=== PATIENT | male | born 1975 | race Caucasian/White ===

== ENCOUNTER 2022-07-27 07:40 | Emergency (ER) | payer OTHER, SELFPAY ==
--- NOTE | ~2022-07-27 | CT_ITS ---
EXAMINATION: CT abdomen pelvis wo con DATE: 07/27/2022 09:05 INDICATION: Right flank pain TECHNIQUE: Computed tomography (CT) of the abdomen and pelvis was performed without intravenous contr ast. The dose-length product (DLP) was 1406.73 mGy-cm. Automated exposure control and iterative recon struction technique were employed. COMPARISON: None FINDINGS: Minimal dependent atelectasis is present in the lung bases. The heart size is normal. The l iver, spleen, pancreas, gallbladder, and adrenal glands are normal. There is a 2 mm stone at the righ t ureterovesicular junction which causes mild hydroureteronephrosis. There are approximately 10 nonob structing stones of the right kidney which measure up to 4 mm. There are three nonobstructing stones of the left kidney which measure up to 3 mm. No pathologically enlarged abdominal or pelvic lymph nod es are identified. No free intraperitoneal gas or evidence of bowel obstruction. There is mild lumbar spondylosis. There is an umbilical hernia containing fat. IMPRESSION: 1. 2 mm stone at the right ureterovesicular junction causing mild hydroureteronephrosis. 2. Nonobstructing bilateral nephrolithiasis. Reviewed, dictated and finalized at location A. IMPRESSION: 1. 2 mm stone at the right ureterovesicular junction causing mild hydroureteron ephrosis. 2. Nonobstructing bilateral nephrolithiasis.
[2022-07-27 07:45] VITALS: BP 135/75; PULSE 66; RESP 16; TEMP 36.7; O2SAT 98
[2022-07-27 08:09] LABS: Basophils Absolute Auto 0.1 K/mm3 (0.0-0.1); Basophils Percent Auto 0.7 % (0.2-1.2); Eosinophils Absolute Auto 0.3 K/mm3 (0-0.3); Eosinophils Percent Auto 4.5 % (0-4.4); Hematocrit 46.2 % (42.0-52.0); Hemoglobin 15.3 g/dL (14.0-18.0); Immature Granulocyte Absolute 0.02 K/mm3 (0.00-0.031); Immature Granulocyte Percent A 0.3 % (0-0.5); Lymphocytes Absolute Auto 2.97 K/mm3 (0.9-3.2); Lymphocytes Percent Auto 40.6 % (18.3-44.2); Mean Corpuscular HGB Conc 33.1 g/dl (32-36); Mean Corpuscular Hemoglobin 28.2 pg (26-34); Mean Corpuscular Volume 85.2 fl (80-100); Mean Platelet Volume 10.3 fl (7.4-10.4); Monocytes Absolute Auto 0.7 K/mm3 (0.1-0.6); Monocytes Percent Auto 9.3 % (2.6-8.5); Neutrophils Absolute Auto 3.3 K/mm3 (1.3-6.7); Neutrophils Percent Auto 44.6 % (45.5-73.1); Platelet Count Result 222 k/mm3 (150-375); Red Blood Count 5.42 M/mm3 (4.6-6.20); Red Cell Distribution Width 13.2 % (11.5-14.5); White Blood Count 7.3 K/mm3 (4.5-10.0)
[2022-07-27 08:17] LABS: Alanine Aminotransferase 43 U/L (6-50); Alkaline Phosphatase 73 U/L (38-126); Anion Gap 7 mmol/L (8-16); Aspartate Amino Transferase 30 U/L (17-59); Bilirubin,Total 0.6 mg/dL (0.2-1.3); Blood Urea Nitrogen 17 mg/dL (9-20); Calcium 9.2 mg/dL (8.4-10.2); Carbon Dioxide 27 mmol/L (22-30); Chloride 106 mmol/L (98-107); Estimated CRCL calculation 102 ml/min; Estimated Glomerular Filt Rate > 60; Glucose 122 mg/dL (65-110); Lipase 141 U/L (23-300); Potassium 4.1 mmol/L (3.4-5.0); Sodium 140 mmol/L (137-145)
[2022-07-27 08:25] LABS: Appearance Urine Cloudy (Clear); Bacteria Urine None Seen /hpf; Bilirubin Urine Negative (Negative); Blood Urine 2+ (Negative); Color Urine Yellow (Yellow); Glucose Urine UA Negative (Negative); Ketones Urine Trace mg/dL (Negative); Leukocyte Esterase Ur Negative LEU/UL (Negative); Nitrate Urine Negative (Negative); Non Pathogenic Casts 0-2; Protein Urine Negative (Negative); Specific Grav Ur 1.024 (1.001-1.035); Squamous Epithelial Cell Urine None seen /hpf (Few); WBC Urine 0-5 /hpf; pH Urine 5.5 (5.0-9.0)
[2022-07-27 08:30] LABS: Add Urine Microscopic? YES
[2022-07-27 08:40] VITALS: BP 137/89; PULSE 65; RESP 18; O2SAT 99
[2022-07-27] MEDS: SODIUM CHLORIDE 0.9% IV 1,000 ML 999 ML IV CONT (09:06)
[2022-07-27] MEDS: ONDANSETRON INJ 4 MG/2 ML VIAL IV PUSH (09:07)
[2022-07-27] MEDS: KETOROLAC 30 MG/ML VIAL (*BKC) IV PUSH (09:08)
--- NOTE | 2022-07-27 10:24 | ED.GENADULT ---
HPI - General Adult General Chief complaint: Urogenital-Male Stated complaint: testicle pain, lower r. flank pain Time Seen by Provider: 07/27/22 08:38 History of Present Illness HPI narrative: Patient is a 47-year-old male who presents ER with right-sided flank pain. Radiates down into his abdomen and testicle. Feels consistent to previous kidney stones he had before. He has had some nausea. He is also endorsing urinary frequency. No alleviating factors. Related Data Allergies Allergy/AdvReac Type Severity Reaction Status Date / Time No Known Allergies Allergy Mild Unverified 07/27/22 08:38 Review of Systems Review of Systems: All systems reviewed & are unremarkable except as noted in HPI and below Constitutional: Constitutional: Denies chills, Denies fatigue and Denies fever(s) Gastrointestinal: Gastrointestinal: Reports abdominal pain, Denies diarrhea and Reports nausea Genitourinary: Genitourinary: Reports dysuria, Reports testicular pain and Reports urinary frequency PMFSH Past Medical History Medical History (Updated 07/27/22 @ 10:29 by Anibal Woodward MD) Kidney stones Surgical History Surgical History (Updated 07/27/22 @ 10:29 by Anibal Woodward MD) History of appendectomy Exam Narrative: GENERAL: Well-appearing, well-nourished, and in no acute distress. HEAD: Normocephalic, atraumatic. ENT: Mucous membranes moist. CHEST: Clear to auscultation. No respiratory distress. HEART: Regular rate and rhythm. Normal peripheral pulses. ABDOMEN: Soft, nontender, nondistended. EXTREMITIES: Normal range of motion. No edema. NEURO: Alert and oriented x3. PSYCH: Normal mood and affect. Course Course Emergency Course: Patient is pain-free after Toradol. Zofran and fluids also given. Informed of diagnosis. Discharge home with supportive care. Should pass the stone today. Vital Signs Vital signs: Vital Signs Temperature 98.1 F 07/27/22 07:45 Pulse Rate 66 07/27/22 07:45 Respiratory Rate 16 07/27/22 07:45 Blood Pressure 135/75 07/27/22 07:45 Pulse Oximetry 98 07/27/22 07:45 Oxygen Delivery Room Air 07/27/22 07:45 Temperature 98.1 F 07/27/22 07:45 Pulse Rate 65 07/27/22 08:40 Respiratory Rate 18 07/27/22 08:40 Blood Pressure 137/89 07/27/22 08:40 Pulse Oximetry 99 07/27/22 08:40 Oxygen Delivery Room Air 07/27/22 07:45 Medical Decision Making Vital Signs Vital Signs: Vital Signs Temperature 98.1 F 07/27/22 07:45 Pulse Rate 66 07/27/22 07:45 Respiratory Rate 16 07/27/22 07:45 Blood Pressure 135/75 07/27/22 07:45 Pulse Oximetry 98 07/27/22 07:45 Oxygen Delivery Room Air 07/27/22 07:45 Temperature 98.1 F 07/27/22 07:45 Pulse Rate 65 07/27/22 08:40 Respiratory Rate 18 07/27/22 08:40 Blood Pressure 137/89 07/27/22 08:40 Pulse Oximetry 99 07/27/22 08:40 Oxygen Delivery Room Air 07/27/22 07:45 Lab Data 07/27/22 07:55 07/27/22 07:55 Labs: Lab Results 07/27/22 07/27/22 07/27/22 Range/Units 07:55 07:55 07:59 WBC 7.3 (4.5-10.0) K/mm3 RBC 5.42 (4.6-6.20) M/mm3 Hgb 15.3 (14.0-18.0) g/dL Hct 46.2 (42.0-52.0) % MCV 85.2 (80-100) fl MCH 28.2 (26-34) pg MCHC 33.1 (32-36) g/dl RDW 13.2 (11.5-14.5) % Plt Count 222 (150-375) k/mm3 MPV 10.3 (7.4-10.4) fl Immature Gran % (Auto) 0.3 (0-0.5) % Neut % (Auto) 44.6 L (45.5-73.1) % Lymph % (Auto) 40.6 (18.3-44.2) % [place] % (Auto) 9.3 H (2.6-8.5) % Eos % (Auto) 4.5 H (0-4.4) % Baso % (Auto) 0.7 (0.2-1.2) % Lymph # (Auto) 2.97 (0.9-3.2) K/mm3 [place] # (Auto) 0.7 H (0.1-0.6) K/mm3 Eos # (Auto) 0.3 (0-0.3) K/mm3 Baso # (Auto) 0.1 (0.0-0.1) K/mm3 Abs Immat Gran (auto) 0.02 (0.00-0.031) K/mm3 Absolute Neuts (auto) 3.3 (1.3-6.7) K/mm3 Absolute Nucleated RBC 0.0 (0.0-0.012) K/mm3 Nucleated RBC % 0.0 (0.0-0.2) % [place]
[2022-07-27 10:36] VITALS: BP 116/66; PULSE 69; RESP 18; O2SAT 99
== END 2022-07-27 10:38 | disposition home or self-care (01) ==
PROVIDERS: Emergency Provider Emergency Medicine
DX: N13.2 Hydronephrosis with renal and ureteral calculous obstruction (principal); Z87.442 Personal history of urinary calculi
CPT/HCPCS: 36415; 74176; 80053; 81001; 83690; 85025; 96361; 96374; 96375; 99284; J1885; J2405; J7030